=== PATIENT | female | born 1990 | race Asian ===

== ENCOUNTER 2020-05-31 19:44 | Observation (INO) | payer MEDICAID ==
[~2020-05-31] VITALS: Ht 157.5 cm; Wt 64.0 kg
[2020-05-31 21:50] LABS: CLARITY URINE CLEAR (CLEAR); COLOR URINE YELLOW (YELLOW); KETONES URINE NEGATIVE (NEGATIVE); LEUKOCYTE ESTERASE URINE 1+ (NEGATIVE); NITRITE URINE NEGATIVE (NEGATIVE); OCCULT BLOOD URINE NEGATIVE (NEGATIVE); PH URINE 6.5 (4.5-8.0); PROTEIN URINE NEGATIVE (NEGATIVE); SPECIFIC GRAVITY URINE 1.003 (1.005-1.030); UROBILINOGEN URINE 0.2 E.U./dL (0.2-1.0)
== END 2020-06-01 | disposition home or self-care (01) ==
LOC: 8 EST LDRP 19:44
PROVIDERS: ADMIT Obstetrics & Gynecology; ATTEND Obstetrics & Gynecology
DX: O62.9 Abnormality of forces of labor, unspecified (principal); O24.419 Gestational diabetes mellitus in pregnancy, unspecified control; Z3A.39 39 weeks gestation of pregnancy
CPT/HCPCS: 59025; 76805; 76818; 81003; 82962; G0378; 99281

== ENCOUNTER 2020-06-05 00:09 | Inpatient (IN) | payer MEDICAID ==
[~2020-06-05] VITALS: Ht 157.5 cm; Wt 63.0 kg
[2020-06-05] MEDS: LACTATED RINGERS 1,000 ML IV SCH ×5 (00:50→10:33)
[2020-06-05] MEDS ORDERED: BUTORPHANOL TARTRATE 2 MG/ML VIAL IV PRN (01:00)
[2020-06-05] MEDS ORDERED: LIDOCAINE HCL 1% 20ML VIAL (Pyxis) INJ INFIL SCH (01:00)
[2020-06-05] MEDS ORDERED: CARBOPROST TROMETHAMINE 250 MCG/ML AMPUL IM PRN (01:00)
[2020-06-05] MEDS ORDERED: METHYLERGONOVINE MALEATE 0.2 MG/ML IM PRN (01:00)
[2020-06-05] MEDS ORDERED: NALOXONE HCL 0.4 MG/ML 1ML VIAL IM PRN (01:00)
[2020-06-05] MEDS ORDERED: MISOPROSTOL 100MCG TABLET VG PRN (02:45)
[2020-06-05] MEDS ORDERED: AMPICILLIN 2,000 MG in SODIUM CHLORIDE 0.9% 100 ML IV SCH (03:00)
[2020-06-05 03:01] LABS: CLARITY URINE CLEAR (CLEAR); COLOR URINE YELLOW (YELLOW); KETONES URINE NEGATIVE (NEGATIVE); LEUKOCYTE ESTERASE URINE 2+ (NEGATIVE); NITRITE URINE NEGATIVE (NEGATIVE); OCCULT BLOOD URINE NEGATIVE (NEGATIVE); PROTEIN URINE NEGATIVE (NEGATIVE); SPECIFIC GRAVITY URINE 1.007 (1.005-1.030); UROBILINOGEN URINE 0.2 E.U./dL (0.2-1.0)
[2020-06-05 03:07] LABS: EOSINOPHILS % 2.9 % (0.0-5.0); HEMATOCRIT. 40.3 % (36.0-48.0); HEMOGLOBIN. 12.9 g/dL (12.0-16.0); LYMPHOCYTES % 23.1 % (20.0-50.0); MEAN CORPUSCULAR HEMOGLOBIN 27.8 pg (28.0-32.0); MEAN CORPUSCULAR VOLUME 86.5 fL (81.0-99.0); MEAN PLATELET VOLUME 9.7 fl (7.4-10.4); MONOCYTES % 6.1 % (2.0-8.0); NEUTROPHILS % 66.9 % (40.0-76.0); PLATELET 294 x1000/uL (130-400); RED BLOOD CELL COUNT 4.65 mill/uL (4.2-5.4); RED CELL DISTRIBUTION WIDTH 14.1 % (11.6-14.6)
[2020-06-05 03:10] LABS: *AMPHETAMINES SCREEN URINE NEGATIVE (NEGATIVE); *BARBITURATES SCREEN URINE NEGATIVE (NEGATIVE); *BENZODIAZEPINES SCREEN URINE NEGATIVE (NEGATIVE); *COCAINE SCREEN URINE NEGATIVE (NEGATIVE); METHADONE URINE SCREEN NEGATIVE (NEGATIVE)
[2020-06-05 03:11] LABS: CANNABINOID URINE SCREEN NEGATIVE (NEGATIVE); OPIATES URINE SCREEN NEGATIVE (NEGATIVE); PHENCYCLIDINE URINE SCREEN NEGATIVE (NEGATIVE)
[2020-06-05 03:13] LABS: INR 0.9; PARTIAL THROMBOPLASTIN TIME 28.2 sec (23.4-31.0); PROTHROMBIN TIME 9.8 sec (9.6-11.0)
[2020-06-05] MEDS ORDERED: DEXT 5%/LACTATED RINGERS 1,000 ML IV SCH (04:45)
[2020-06-05 08:07] LABS: HEPATITIS B SURFACE ANTIGEN NEGATIVE
[2020-06-05] MEDS: AMPICILLIN 1,000 MG in SODIUM CHLORIDE 0.9% 50 ML IV SCH ×2 (09:21→15:46)
[2020-06-05] MEDS: DEXT 5%/LR + PITOCIN 20UNITS/L 1,000 ML IV SCH ×2 (09:22→19:42)
[2020-06-05] MEDS ORDERED: ONDANSETRON HCL 4MG/2ML INJ IV PRN (10:15)
[2020-06-05] MEDS ORDERED: DIPHENHYDRAMINE 50MG/ML VIAL IV PRN (10:15)
[2020-06-05] MEDS ORDERED: ROPIVACAINE HCL/PF EPIDURAL 200 ML EPI SCH (10:15)
[2020-06-05] MEDS ORDERED: FENTANYL CITRATE/PF 50MCG/ML 2ML VIAL ONE (10:37)
[2020-06-05] MEDS ORDERED: DEXT 5%/LR + PITOCIN 20UNITS/L 1,000 ML IV SCH (19:44)
[2020-06-05] MEDS ORDERED: IBUPROFEN 400MG TABLET PO PRN (19:45)
[2020-06-05] MEDS ORDERED: BENZOCAINE/LANOLIN/ALOE VERA SPRAY TOP PRN (19:45)
[2020-06-05] MEDS ORDERED: RHO(D) IMMUNE GLOBULIN 300 MCG/SYR IM PRN (19:45)
[2020-06-05 20:30] VITALS: BP 107/68
[2020-06-05] MEDS: IBUPROFEN 800MG TABLET PO PRN (21:42)
[2020-06-06 04:00] VITALS: BP 108/71
[2020-06-06 06:36] LABS: BASOPHILS % 0.4 % (0.0-2.0); EOSINOPHILS % 0.1 % (0.0-5.0); HEMATOCRIT. 26.3 % (36.0-48.0); HEMOGLOBIN. 8.6 g/dL (12.0-16.0); LYMPHOCYTES % 12.4 % (20.0-50.0); MEAN CORPUSCULAR HEMOGLOBIN 28.1 pg (28.0-32.0); MEAN CORPUSCULAR VOLUME 86.2 fL (81.0-99.0); MEAN PLATELET VOLUME 8.9 fl (7.4-10.4); MONOCYTES % 4.7 % (2.0-8.0); NEUTROPHILS % 82.4 % (40.0-76.0); PLATELET 225 x1000/uL (130-400); RED BLOOD CELL COUNT 3.05 mill/uL (4.2-5.4)
[2020-06-06] MEDS: IBUPROFEN 800MG TABLET PO PRN (07:31)
[2020-06-06] MEDS ORDERED: TETANUS, DIPHTHERIA, PERTUSSIS VAC/PF 0.5ML (>7YR OLD) IM ONE (08:00)
[2020-06-06 08:30] VITALS: BP 104/64
[2020-06-06] MEDS ORDERED: PHENYLEPHRINE/SHK LV/MO/PET,WH RECTAL OINT 57GM PR SCH (12:00)
[2020-06-06 15:21] VITALS: BP 101/63
[2020-06-06 20:00] VITALS: BP 106/63
[2020-06-07] MEDS: IBUPROFEN 800MG TABLET PO PRN (01:51)
[2020-06-07] MEDS ORDERED: FERR325T6 MT (03:16)
[2020-06-07] MEDS ORDERED: IBUP-2030 PO (03:16)
[2020-06-07] MEDS ORDERED: PREN-55 MT (03:16)
[2020-06-07 04:00] VITALS: BP_SYST 106; BP_DIAS 55; BP_DIAS 56
[2020-06-07 08:30] VITALS: BP 94/59
== END 2020-06-07 11:45 | disposition home or self-care (01) | DRG 560 ==
LOC: INTOOBSV 00:09 → 8 EST LDRP 00:09 → OBSVTOIN 00:09 → 8 EST LDRP 07:07 → 8EST NSY 21:32 → 8EST 21:38
PROVIDERS: ADMIT Obstetrics & Gynecology; ATTEND Obstetrics & Gynecology
PROC: 10D07Z6 Extraction of Products of Conception, Vacuum, Via Natural or Artificial Opening (ICD-10-PCS; principal; 2020-06-05)
PROC: 0W8NXZZ Division of Female Perineum, External Approach (ICD-10-PCS; 2020-06-05)
PROC: 3E0R3BZ Introduction of Anesthetic Agent into Spinal Canal, Percutaneous Approach (ICD-10-PCS; 2020-06-05)
PROC: 00HU33Z Insertion of Infusion Device into Spinal Canal, Percutaneous Approach (ICD-10-PCS; 2020-06-05)
DX: O48.0 Post-term pregnancy (principal); E03.9 Hypothyroidism, unspecified; O24.420 Gestational diabetes mellitus in childbirth, diet controlled; O45.90 Premature separation of placenta, unspecified, unspecified trimester; O77.0 Labor and delivery complicated by meconium in amniotic fluid; O99.284 Endocrine, nutritional and metabolic diseases complicating childbirth; Z37.0 Single live birth; Z3A.40 40 weeks gestation of pregnancy
CPT/HCPCS: 36415; 80305; 81003; 82947; 82962; 85025; 86592; 86703; 86762; 86850; 86900; 87340; 90715; G0378; J0290; J2405; J2590; J2795; J3010; J7050; J7120; J7121